=== PATIENT | female | born 1945 | race Caucasian/White ===

== ENCOUNTER 2017-05-20 11:47 | Outpatient (CLI) | payer MEDICARE ==
[2017-05-20 13:13] LABS: #Basophils 0.1 thou/uL (0.0-0.2); #Eosinphils 0.4 thou/uL (0.0-0.7); #Lymphocytes 3.5 thou/uL (1.20-3.40); #Monocytes 0.8 thou/uL (0.11-0.59); #Neutrophils 6.6 thou/uL (1.40-6.50); %Basophils 0.8 % (0.0-1.0); %Eosinophils 3.6 % (0.0-10.0); %Lymphocytes 30.6 % (21.0-51.0); %Monocytes 7.1 % (0.0-10.0); Hemoglobin 14.2 g/dL (12.0-16.0); Mean Corpuscular HGB CONC 32.1 g/dL (32.0-36.0); Mean Corpuscular Hemoglobin 30.5 pg (27.0-31.0); Mean Platelet Volume 7.7 fL (7.4-10.4); Platelet Count 299 thou/uL (130-400); RBC Distribution Width 12.3 % (11.5-14.5); Red Blood Cell (RBC) Count 4.67 mill/uL (4.20-5.40); White Blood Cell (WBC) Count 11.3 thou/uL (4.8-10.8)
[2017-05-20 13:18] LABS: Prothrombin Time 13.5 SEC (12.0-14.7)
[2017-05-20 13:19] LABS: Bilirubin Negative (Negative); Blood, Urine Negative (Negative); Clarity CLEAR (Clear); Glucose, Urine (Dipstick) Negative (Negative); Leukocyte Negative (Negative); Nitrite Negative (Negative); Protein, Urine (Dipstick) Negative (Neg-Trace); Specific Gravity, Urine 1.016 (1.002-1.036)
[2017-05-20 13:26] LABS: Bacteria/HPF None Seen HPF (None Seen); Hyaline Casts/LPF 0-3 HYALINE CAST LPF (0-3 Hyaline); Pathc Cast-AUWi Flag 0.27 (0-2.49); Squamous Epithelial 0-3 HPF (0-3); WBC/HPF 0-3 HPF (0-3)
[2017-05-20 13:47] LABS: Anion Gap 12 mmol/L (10-20); BUN (Urea Nitrogen) 26 mg/dL (9.8-20.1); Calc. Creatinine Clearance 0 mL/min (70-130); Carbon Dioxide 27 mmol/L (23-31); Chloride 104 mmol/L (98-107); Estimated GFR-MDRD 37; Glucose 117 mg/dL (83-110); Potassium 4.2 mmol/L (3.5-5.1); Sodium 139 mmol/L (136-145)
--- NOTE | 2017-05-21 07:33 | EKG ---
Test Reason : Blood Pressure : / mmHG Vent. Rate : 084 BPM Atrial Rate : 084 BPM P-R Int : 204 ms QRS Dur : 070 ms QT Int : 372 ms P-R-T Axes : 069 088 057 degrees QTc Int : 439 ms Normal sinus rhythm 1st degree AV block Low voltage QRS Cannot rule out Anterior infarct (cited on or before 20-MAY-2017) Abnormal ECG When compared with ECG of 04-SEP-2015 10:54, No significant change was found Confirmed by DR. Naomi ANDERSON ([id number]) on 05/21/2017 7:32:35 AM Referred By: MARCIN Confirmed By:DR. Naomi ANDERSON
== END 2017-05-20 11:48 | disposition home or self-care (01) ==
LOC: LABBT 11:47
PROVIDERS: ATTEND Orthopaedic Surgery
DX: Z01.818 Encounter for other preprocedural examination (principal); M17.11 Unilateral primary osteoarthritis, right knee
CPT/HCPCS: 80048; 81001; 85025; 85610; 87081; 93005; 93010

== ENCOUNTER 2017-06-02 05:24 | Day surgery (SDC) | payer MEDICARE ==
[2017-06-02] MEDS ORDERED: Bupivacaine 0.5% 10 ML VIAL ONE ×2 (06:16→06:17)
[2017-06-02] MEDS ORDERED: Midazolam HCl 2 mg/2 ml Vial ONE (06:17)
[2017-06-02] MEDS ORDERED: Fentanyl 250 MCG/5 ML VIAL ONE ×2 (06:17→09:51)
[2017-06-02] MEDS ORDERED: Lidocaine 1% (PF) 30 ML VIAL ONE (06:18)
[2017-06-02] MEDS ORDERED: Ropivacaine 0.2% HCl/PF 20 ML ONE (06:18)
[2017-06-02] MEDS ORDERED: Vancomycin HCl 1.5 GM in Sodium Chloride 0.9% 250 ML 300 ML IVPB SCH ×2 (06:30→20:00)
[2017-06-02] MEDS ORDERED: CEFAZOLIN/Water 2 GM/20 ML SYRINGE ONE (06:32)
[2017-06-02] MEDS ORDERED: Zolpidem Tartrate 5 MG TAB PO PRN ×2 (07:13→07:30)
[2017-06-02] MEDS ORDERED: Ropivacaine HCl/PF 250 ML in Premix Bag 1 BAG NERVE BLCK SCH (07:13)
[2017-06-02] MEDS ORDERED: HYDROcodone/Acetaminophen 5/325 mg Tablet PO PRN (07:13)
[2017-06-02] MEDS ORDERED: Ondansetron HCl/PF 4 MG/2 ML Vial IVP PRN ×2 (07:13→07:44)
[2017-06-02] MEDS ORDERED: Promethazine HCl 25 MG/ML VIAL IM PRN ×2 (07:13→07:44)
[2017-06-02] MEDS ORDERED: traMADol HCl 50 MG TAB PO PRN ×3 (07:13→07:30)
[2017-06-02] MEDS ORDERED: HYDROcodone/Acetaminophen 10/325 mg Tablet PO PRN ×2 (07:30)
[2017-06-02] MEDS ORDERED: diphenhydrAMINE 25 MG CAP PO PRN (07:30)
[2017-06-02] MEDS ORDERED: Acetaminophen 325 MG TAB PO PRN (07:30)
[2017-06-02] MEDS ORDERED: Tranexamic Acid 1,000 MG in Sodium Chloride 0.9% 100 ML IVPB SCH (07:30)
[2017-06-02] MEDS ORDERED: Albuterol Sulfate 2.5 mg/3 ml Neb NEB PRN (07:31)
[2017-06-02] MEDS ORDERED: PROVENTIL INHALER 6.7 G (200 INHALATIONS) INH PRN (07:31)
[2017-06-02] MEDS ORDERED: Promethazine HCl 25 MG/ML VIAL SLOW IVP PRN (07:44)
--- NOTE | 2017-06-02 09:53 | OP ---
DATE OF PROCEDURE: 06/02/2017 PREOPERATIVE DIAGNOSIS: Right knee osteoarthrosis. POSTOPERATIVE DIAGNOSIS: Right knee osteoarthrosis. PROCEDURE PERFORMED: Right total knee replacement using [employer] pinless navigation. SURGEON: Loc Bautista M.D. PHYSICIAN PRACTICE COORDINATOR: Marcie Barnes PA-C COMPLICATIONS: None. ANESTHESIA: She had general anesthetic, she also had preoperative blocks. DISPOSITION: She did go to recovery room in stable condition. BLOOD LOSS: Minimal. IMPLANTS: To the right knee is Triathlon total knee system, femur was size 4 cruciate retaining femu r, we used a size 4 universal tibial baseplate. We used a 4 x 13 CS X3 tibial bearing and an asymmet adrienne 29 x 9 X3 patella. CONDITION: She did go to recovery room in stable condition. INDICATIONS: Ms. Schneider is a 71-year-old female who has tried and failed nonoperative treatment fo r right knee pain and feeling of instability secondary to osteoarthritis. At this time, she opted to have her knee replaced. PROCEDURE IN DETAIL: After all appropriate consent forms were explained and signed, the patient was t aken back to the Operating Room and at this time was given general anesthetic. Once the level of anes thesia was appropriate, a well-padded tourniquet was placed on the right leg and the leg was then pre pped and draped in standard surgical fashion. The limb was exsanguinated and tourniquet taken up to 3 00 mmHg. Midline incision was made with a 10 blade down through the skin and subcutaneous tissue. Bov ie electrocautery was used to coagulate any brisk venous bleeding. A new blade was used to make a med ial parapatellar arthrotomy. Small subperiosteal release was performed medially and excess fat pad wa s removed. The knee was flexed up to gain access to the femur. The femur was navigated and distal fem oral resection was made. Epicondylar access was used to align our sizing jig and this was pinned in p renetta. We sized our femur to be a size 4 cruciate retaining 4:1 cutting block was applied and pinned. Anterior and posterior chamfer cuts were then made. We navigated out our proximal tibia and made our proximal tibial resection. Spreaders were used to remove any posterior osteophytes off the back of th e femur as well as remaining meniscal tissue. A long alignment dequan was then used to achieve correct r otation of our tibial baseplate and a size 4 was chosen. This was pinned in place. We trialed the kenroy yethylene and a 4 x 13 CS X3 polyethylene gave us full extension and good stability throughout range of motion. Two towel clips and a saw were used to cut our patella. Three lug nuts were drilled and 29 x 9 X3 patella was trialed which sat nicely in the trochlear groove. We then drilled our femur and p unched our tibia. All components were removed. The knee was thoroughly irrigated and dried. Cement wa s mixed into the cement gun on the back table. Components were then placed. The knee was held out in full extension until the cement had dried. All excess bone cement was removed. Multiple #[address] itches as well as a Quill was used to close our extensor mechanism. 0 Quill followed by a running Mon oderm was then used to close the skin. Surgicel glue was then used on the skin. Once this had dried, soft tissue dressing was applied to the limb, tourniquet was let down, and the toes pinked up nicely. The patient was then awakened and taken to the Recovery Room in stable condition. All counts were c orrect at the end of the case. The patient did receive preoperative IV antibiotics. The patient was injected with Exparel for postoperative pain relief.
[2017-06-02] MEDS ORDERED: Promethazine HCl 25 MG/ML VIAL ONE (10:02)
[2017-06-02] MEDS: CeleCOXIB 100 MG CAP PO SCH (11:27)
[2017-06-02] MEDS: Amlodipine 5 MG TAB PO SCH (11:27)
[2017-06-02] MEDS: Triamterene/Hydrochlorothiazide 37.5 mg/25 mg Tablet PO SCH (11:27)
[2017-06-02] MEDS: Aspirin 81 mg Enteric Coated Tablet PO SCH ×2 (11:28→20:26)
[2017-06-02 11:30] VITALS: BMI 35.5
[2017-06-02] MEDS ORDERED: Milk Of Magnesia 30 ML UDCUP PO PRN (12:39)
[2017-06-02] MEDS ORDERED: Chloraseptic Spray 180 ml Bottle PO PRN (12:39)
[2017-06-02] MEDS ORDERED: Eucerin (Mineral Oil/Petrolatum,White) 30 gm Jar TOP PRN (12:39)
[2017-06-02] MEDS ORDERED: Mag-Al 1200 mg/1200 mg/30 ML UDCUP PO PRN (12:39)
[2017-06-02] MEDS ORDERED: Senokot 8.6 MG TAB PO PRN (12:39)
[2017-06-02] MEDS ORDERED: Ondansetron ODT 4 MG TAB PO PRN (12:39)
[2017-06-02] MEDS ORDERED: Diabetic Tussin 200 MG/10 ML UDCUP PO PRN (12:39)
[2017-06-02] MEDS ORDERED: Loperamide HCl 2 MG CAP PO PRN (12:39)
[2017-06-02] MEDS ORDERED: Loratadine 10 MG TAB PO PRN (12:39)
[2017-06-02] MEDS ORDERED: hydrALAZINE 20 MG/ML VIAL SLOW IVP PRN (12:39)
[2017-06-02] MEDS ORDERED: Artificial Tears 18 DROP/0.9 ML EA EYE PRN (12:39)
--- NOTE | 2017-06-02 12:42 | PDOC.PN ---
- Subjective Encounter Start Date: 06/02/17 Encounter Start Time: 12:40 -: old records requested/rev consult for medical management Patient seen and examined. No new complaints. currently feels sleepy after surgery as she did not sleep last night well pain is controlled - Objective Resuscitation Status: Resuscitation Status FULL:Full Resuscitation MAR Reviewed: Yes Vital Signs & Weight: Vital Signs (12 hours) Temp Pulse Resp BP Pulse Ox 06/02/17 11:05 98.2 F 95 18 139/64 96 Weight Weight 220 lb Phys Exam - Physical Examination Constitutional: NAD HEENT: PERRLA, moist MMs, sclera anicteric Neck: no JVD, supple Respiratory: no wheezing, no rales, no rhonchi Cardiovascular: RRR, no significant murmur, no rub Gastrointestinal: soft, non-tender, no distention, positive bowel sounds Musculoskeletal: no edema, pulses present right knee with dressing Neurological: non-focal, normal sensation, moves all 4 limbs Psychiatric: normal affect, A&O x 3 Skin: no rash, normal turgor Dx/Plan (1) Status post right knee replacement Code(s): Z96.651 - PRESENCE OF RIGHT ARTIFICIAL KNEE JOINT Status: Acute (2) Hypertension Code(s): I10 - ESSENTIAL (PRIMARY) HYPERTENSION Status: Chronic (3) GERD (gastroesophageal reflux disease) Code(s): K21.9 - GASTRO-ESOPHAGEAL REFLUX DISEASE WITHOUT ESOPHAGITIS Status: Chronic Qualifiers: Esophagitis presence: without esophagitis Qualified Code(s): K21.9 - Gastro -esophageal reflux disease without esophagitis (4) Asthma Code(s): J45.909 - UNSPECIFIED ASTHMA, UNCOMPLICATED Status: Chronic Qualifiers: Asthma severity: unspecified severity (5) Obesity (BMI 30-39.9) Code(s): E66.9 - OBESITY, UNSPECIFIED Status: Chronic (6) Osteoarthritis Code(s): M19.90 - UNSPECIFIED OSTEOARTHRITIS, UNSPECIFIED SITE Status: Chronic - Plan cont current plan of care, PT/OT, DVT proph w/SCDs * medication reviewed as below * symptomatic treatment * code status- Full code * GI prophylasix: pepcid 20 mg po bid * DVT prophylaxis: aspirin as per protocol * PT/OT as per [facility] protocol * pain control with pain med * restart home meds * nerve block. Review of Systems - Review of Systems Constitutional: negative: fever, chills, sweats, weakness, malaise, other Eyes: negative: Pain, Vision Change, Conjunctivae Inflammation, Eyelid Inflammation, Redness, Other ENT: negative: Ear Pain, Ear Discharge, Nose Pain, Nose Discharge, Nose Congestion, Mouth Pain, Mouth Swelling, Throat Pain, Throat Swelling, Other Respiratory: negative: Cough, Dry, Shortness of Breath, Hemoptysis, SOB with Excertion, Pleuritic Pain, Sputum, Wheezing Cardiovascular: negative: chest pain, palpitations, orthopnea, paroxysmal nocturnal dyspnea, edema, light headedness, other Gastrointestinal: negative: Nausea, Vomiting, Abdominal Pain, Diarrhea, Constipation, Melena, Hematochezia, Other Genitourinary: negative: Dysuria, Frequency, Incontinence, Hematuria, Retention , Other Musculoskeletal: negative: Neck Pain, Shoulder Pain, Arm Pain, Back Pain, Hand Pain, Leg Pain, Foot Pain, Other Skin: negative: Rash, Lesions, Pj, Bruising, Other Neurological: negative: Weakness, Numbness, Incoordination, Change in Speech, Confusion, Seizures, Other - Medications/Allergies Allergies/Adverse Reactions: Allergies Allergy/AdvReac Type Severity Reaction Status Date / Time adhesive Allergy rash, Verified 05/20/17 12:12 blistering latex Allergy Rash Verified 05/20/17 12:12 horse serum Allergy Rash Uncoded 05/20/17 12:12 Medications: Current Medications Acetaminophen (Tylenol) 650 mg PO Q4H PRN PRN Reason: KHAN/ T > 101F; Mild Pain (1-3) Hydrocodone Bitart/Acetaminophen ([place] 5/325) 1 tab PO Q4H PRN PRN Reason: Mild Pain (1-3) Hydrocodone Bitart/Acetaminophen ([place] 5/325) 2 tab PO Q4H PRN PRN Reason: For Moderate Pain 4-6 Al Hydroxide/Mg Hydroxide (Maalox) 15 ml PO Q4H PRN PRN Reason: Heartburn or Indigestion Albuterol Sulfate (Ventolin) 7.5 mg NEB Q8H PRN PRN Reason: COPD Amlodipine Besylate (Norvasc) 5 mg PO DAILY J[facility] Last Admin: 06/02/17 11:27 Dose: Not Given Artificial Tears (Tears Naturale) 0 drop EA EYE PRN PRN PRN Reason: Dry Eyes Aspirin (Ecotrin) 81 mg PO BID [facility] Last Admin: 06/02/17 11:28 Dose: Not Given Atorvastatin Calcium (Lipitor) 40 mg PO HS [facility] Benazepril HCl (Lotensin) 20 mg PO DAILY [facility] Last Admin: 06/02/17 11:27 Dose: Not Given Budesonide (Pulmicort Neb Solution) 0.5 mg NEB BID-RT [facility] Cefazolin Sodium (Ancef) 2 gm SLOW IVP 0700,1500,2300 [facility] Stop: 06/02/17 23:01 Celecoxib (Celebrex) 200 mg PO DAILY [facility] Last Admin: 06/02/17 11:27 Dose: Not Given Diphenhydramine HCl (Benadryl) 25 mg PO Q6H PRN PRN Reason: Itching Famotidine (Pepcid) 20 mg PO BID [facility] Fentanyl (Sublimaze) 50 mcg IV Q1H PRN PRN Reason: Moderate to Severe Pain (6-10) Ferrous Gluconate (Fergon) 324 mg PO BID-[facility] Guaifenesin (Robitussin Sf) 200 mg PO Q4H PRN PRN Reason: Cough Hydralazine HCl (Apresoline) 10 mg SLOW IVP Q4H PRN PRN Reason: Systolic BP > 180 Ropivacaine 250 ml/ Device 250 mls @ 6 mls/hr NERVE BLCK INF [facility] PRN Reason: As Directed Sodium Chloride (Normal Saline 0.9%) 1,000 mls @ 100 mls/hr IV .Q10H [facility] Vancomycin HCl 1.5 gm/ Sodium (Chloride) 300 mls @ 200 mls/hr IVPB 2000 [facility] Stop: 06/02/17 21:29 Ipratropium [place] (Atrovent) 0.2 ml NEB TID-RT [facility] Iron/Minerals/Multivitamins (Theragran M) 1 tab PO DAILY [facility] Loperamide HCl (Imodium) 2 mg PO PRN PRN PRN Reason: Diarrhea/Loose Stools Loratadine (Claritin) 10 mg PO DAILYPRN PRN PRN Reason: Sinus Symptoms Magnesium Hydroxide (Milk Of Magnesium) 30 ml PO DAILYPRN PRN PRN Reason: Constipation Mineral Oil/White Petrolatum (Eucerin Cream) 0 gm TOP BIDPRN PRN PRN Reason: Dry Skin Montelukast Sodium (Singulair) 10 mg PO HS [facility] Ondansetron HCl (Zofran) 4 mg IVP Q6H PRN PRN Reason: Nausea/Vomiting Ondansetron HCl (Zofran Odt) 4 mg PO Q6H PRN PRN Reason: Nausea/Vomiting Phenol (Chloraseptic [place] 180 Ml Bot) 0 ml PO PRN PRN PRN Reason: Sore Throat Promethazine HCl (Phenergan) 12.5 mg IM Q4H PRN PRN Reason: Nausea/Vomiting Senna (Senokot) 2 tab PO HSPRN PRN PRN Reason: Constipation Senna/Docusate Sodium (Senokot S) 2 tab PO BID J[facility] Sodium Chloride (Flush - Normal Saline) 10 ml IVF PRN PRN PRN Reason: Saline Flush Tramadol HCl (Ultram) 50 mg PO Q6H PRN PRN Reason: Mild Pain (1-3) Tramadol HCl (Ultram) 100 mg PO Q6H PRN PRN Reason: Moderate Pain 4-6 Triamterene/HCTZ (Maxzide-25) 1 tab PO QAM [facility] Last Admin: 06/02/17 11:27 Dose: Not Given Zolpidem Tartrate (Ambien) 5 mg PO HSPRN PRN PRN Reason: Insomnia History of Present Illnes - History of Present Illness Reason for Visit: admitted for right knee replacement History of Present Illness: consulted for medical management pt has knee OA, she failed outpt conservative treatment she required knee replacement post op pt is sleepy pain controlled no chest pain, dyspnea no fever, UTI symptoms - Past Medical History Cardiac: HTN, Hyperlipidemia Pulmonary: Asthma Gastrointestinal: GERD Musculoskeletal: Osteoarthritis - Past Surgical History Past Surgical History: Other (back surgery, bilateral CTR), Total Knee Replacement, Tubal Ligation - Past Family History Family History: None - Past Social History Smoke: No Alcohol: None Drugs: None Domestic Violence: Negative
[2017-06-02] MEDS: Fentanyl 100 MCG/2 ML VIAL IV PRN ×2 (12:47→17:15)
[2017-06-02] MEDS: Sodium Chloride 0.9% 1,000 ML IV SCH ×2 (12:48→17:57)
[2017-06-02] MEDS: Ipratropium Bromide 2.5 ml Neb NEB SCH ×2 (12:54→19:17)
[2017-06-02] MEDS: CEFAZOLIN/Water 2 GM/20 ML SYRINGE SLOW IVP SCH ×2 (16:01→22:24)
[2017-06-02] MEDS: Ondansetron HCl/PF 4 MG/2 ML Vial IVP PRN ×2 (16:01→22:22)
[2017-06-02] MEDS: Promethazine HCl 25 MG/ML VIAL IM PRN (17:15)
[2017-06-02] MEDS: Budesonide 0.5 MG/2 ML NEB NEB SCH (19:22)
[2017-06-02] MEDS: Famotidine 20 MG TAB PO SCH (20:26)
[2017-06-02] MEDS: HYDROcodone/Acetaminophen 5/325 mg Tablet PO PRN (20:27)
[2017-06-02] MEDS ORDERED: Atorvastatin Calcium 40 MG TAB PO SCH (21:00)
[2017-06-02] MEDS ORDERED: Montelukast Sodium 10 mg Tablet PO SCH (21:00)
[2017-06-03 02:36] VITALS: TEMP 98.4
[2017-06-03] MEDS: Sodium Chloride 0.9% 1,000 ML IV SCH ×2 (02:47→13:41)
[2017-06-03 04:21] LABS: Hemoglobin 12.3 g/dL (12.0-16.0); Mean Corpuscular HGB CONC 33.1 g/dL (32.0-36.0); Mean Corpuscular Hemoglobin 30.8 pg (27.0-31.0); Platelet Count 240 thou/uL (130-400); RBC Distribution Width 12.1 % (11.5-14.5); Red Blood Cell (RBC) Count 3.98 mill/uL (4.20-5.40); White Blood Cell (WBC) Count 13.8 thou/uL (4.8-10.8)
[2017-06-03] MEDS: HYDROcodone/Acetaminophen 5/325 mg Tablet PO PRN (05:18)
[2017-06-03] MEDS: Ipratropium Bromide 2.5 ml Neb NEB SCH ×2 (07:32→11:57)
[2017-06-03] MEDS: Budesonide 0.5 MG/2 ML NEB NEB SCH (07:32)
[2017-06-03] MEDS: Promethazine HCl 25 MG/ML VIAL IM PRN (07:48)
[2017-06-03] MEDS: Triamterene/Hydrochlorothiazide 37.5 mg/25 mg Tablet PO SCH (07:51)
[2017-06-03] MEDS: CeleCOXIB 100 MG CAP PO SCH (07:52)
[2017-06-03 07:53] VITALS: BP 124/68
[2017-06-03] MEDS: Aspirin 81 mg Enteric Coated Tablet PO SCH (07:53)
[2017-06-03] MEDS: Famotidine 20 MG TAB PO SCH (07:53)
[2017-06-03] MEDS ORDERED: Ferrous Gluconate 324 MG TAB PO SCH (08:00)
--- NOTE | 2017-06-03 08:02 | PRG ---
DATE OF SERVICE: 06/03/2017 SUBJECTIVE: Michelle is a 71-year-old white female postop day #1 right total knee arthroplasty. She is doing relatively well. She is normotensive according to nursing assessment but does take I belie ve 3 different antihypertensives. PHYSICAL EXAMINATION: VITAL SIGNS: Blood pressure 126/70s. GENERAL: She is alert and oriented to person, place, time, and situation, and responsive. Neurovasc ularly intact in the right lower extremity. No strikethrough is noted. Dressing is clean and dry. ASSESSMENT: A 71-year-old white female postop day #1 right total knee arthroplasty. PLAN: We will just hold her Norvasc, give her other agents. Continue to monitor and probable discha rge tomorrow.
[2017-06-03] MEDS ORDERED: Senokot S 8.6-50 MG TAB PO SCH (09:00)
[2017-06-03] MEDS ORDERED: Multivitamin W/ Minerals 1 TAB PO SCH (09:00)
[2017-06-03] MEDS ORDERED: HYDROcodone/Acetaminophen 10/325 mg Tablet PO PRN (09:09)
[2017-06-03] MEDS: HYDROcodone/Acetaminophen 10/325 mg Tablet PO PRN ×2 (09:14→13:40)
--- NOTE | 2017-06-03 09:22 | PDOC.PN ---
- Subjective Encounter Start Date: 06/03/17 Encounter Start Time: 08:45 -: old records requested/rev Patient seen and examined. No new complaints. No overnight events - Objective Resuscitation Status: Resuscitation Status FULL:Full Resuscitation MAR Reviewed: Yes Vital Signs & Weight: Vital Signs (12 hours) Temp Pulse Resp BP BP Pulse Ox 06/03/17 07:52 124/68 06/03/17 07:50 98.4 F 87 18 124/68 94 L 06/03/17 04:00 98.4 F 87 18 131/75 94 L 06/03/17 00:00 98.4 F 92 18 131/72 94 L Weight Weight 220 lb I&O: 06/02/17 06/03/17 06/04/17 06:59 06:59 06:59 Intake Total 3762 72 Output Total 2250 Balance 1512 72 Result Diagrams: 06/03/17 04:02 Phys Exam - Physical Examination Constitutional: NAD HEENT: PERRLA, moist MMs, sclera anicteric Neck: no JVD, supple Respiratory: no wheezing, no rales, no rhonchi Cardiovascular: RRR, no significant murmur, no rub Gastrointestinal: soft, non-tender, no distention, positive bowel sounds Musculoskeletal: no edema, pulses present right kneww with brace Neurological: non-focal, normal sensation, moves all 4 limbs Psychiatric: normal affect, A&O x 3 Skin: no rash, normal turgor Dx/Plan (1) Status post right knee replacement Code(s): Z96.651 - PRESENCE OF RIGHT ARTIFICIAL KNEE JOINT Status: Acute (2) Hypertension Code(s): I10 - ESSENTIAL (PRIMARY) HYPERTENSION Status: Chronic (3) GERD (gastroesophageal reflux disease) Code(s): K21.9 - GASTRO-ESOPHAGEAL REFLUX DISEASE WITHOUT ESOPHAGITIS Status: Chronic Qualifiers: Esophagitis presence: without esophagitis Qualified Code(s): K21.9 - Gastro -esophageal reflux disease without esophagitis (4) Asthma Code(s): J45.909 - UNSPECIFIED ASTHMA, UNCOMPLICATED Status: Chronic Qualifiers: Asthma severity: unspecified severity (5) Obesity (BMI 30-39.9) Code(s): E66.9 - OBESITY, UNSPECIFIED Status: Chronic (6) Osteoarthritis Code(s): M19.90 - UNSPECIFIED OSTEOARTHRITIS, UNSPECIFIED SITE Status: Chronic - Plan cont current plan of care, plan discussed w/ family, PT/OT, DVT proph w/SCDs * medication reviewed as below * symptomatic treatment * code status- Full code * GI prophylasix: pepcid 20 mg po bid * DVT prophylaxis: aspirin as per protocol * PT/OT as per [facility] protocol * pain control with pain med * continue home meds * nerve block.. Review of Systems - Review of Systems Eyes: negative: Pain, Vision Change, Conjunctivae Inflammation, Eyelid Inflammation, Redness, Other ENT: negative: Ear Pain, Ear Discharge, Nose Pain, Nose Discharge, Nose Congestion, Mouth Pain, Mouth Swelling, Throat Pain, Throat Swelling, Other Respiratory: negative: Cough, Dry, Shortness of Breath, Hemoptysis, SOB with Excertion, Pleuritic Pain, Sputum, Wheezing Cardiovascular: negative: chest pain, palpitations, orthopnea, paroxysmal nocturnal dyspnea, edema, light headedness, other Gastrointestinal: negative: Nausea, Vomiting, Abdominal Pain, Diarrhea, Constipation, Melena, Hematochezia, Other Genitourinary: negative: Dysuria, Frequency, Incontinence, Hematuria, Retention , Other Musculoskeletal: negative: Neck Pain, Shoulder Pain, Arm Pain, Back Pain, Hand Pain, Leg Pain, Foot Pain, Other - Medications/Allergies Allergies/Adverse Reactions: Allergies Allergy/AdvReac Type Severity Reaction Status Date / Time adhesive Allergy rash, Verified 06/02/17 13:03 blistering latex Allergy Rash Verified 06/02/17 13:03 horse serum Allergy Rash Uncoded 05/20/17 12:12 Medications: Current Medications Acetaminophen (Tylenol) 650 mg PO Q4H PRN PRN Reason: KHAN/ T > 101F; Mild Pain (1-3) Hydrocodone Bitart/Acetaminophen ([place] 10/325) 1 tab PO Q4H PRN PRN Reason: PAIN SCALE 2-4 Hydrocodone Bitart/Acetaminophen ([place] 10/325) 2 tab PO Q4H PRN PRN Reason: PAIN SCALE 5-10 Last Admin: 06/03/17 09:14 Dose: 2 tab Al Hydroxide/Mg Hydroxide (Maalox) 15 ml PO Q4H PRN PRN Reason: Heartburn or Indigestion Albuterol Sulfate (Ventolin) 7.5 mg NEB Q8H PRN PRN Reason: COPD Last Admin: 06/02/17 19:21 Dose: 7.5 mg Amlodipine Besylate (Norvasc) 5 mg PO DAILY [facility] Last Admin: 06/02/17 11:27 Dose: Not Given Artificial Tears (Tears Naturale) 0 drop EA EYE PRN PRN PRN Reason: Dry Eyes Aspirin (Ecotrin) 81 mg PO BID [facility] Last Admin: 06/03/17 07:53 Dose: 81 mg Atorvastatin Calcium (Lipitor) 40 mg PO HS [facility] Last Admin: 06/02/17 20:26 Dose: 40 mg Benazepril HCl (Lotensin) 20 mg PO DAILY [facility] Last Admin: 06/03/17 07:52 Dose: 20 mg Budesonide (Pulmicort Neb Solution) 0.5 mg NEB BID-RT [facility] Last Admin: 06/03/17 07:32 Dose: 0.5 mg Celecoxib (Celebrex) 200 mg PO DAILY [facility] Last Admin: 06/03/17 07:52 Dose: 200 mg Diphenhydramine HCl (Benadryl) 25 mg PO Q6H PRN PRN Reason: Itching Famotidine (Pepcid) 20 mg PO BID [facility] Last Admin: 06/03/17 07:53 Dose: 20 mg Fentanyl (Sublimaze) 50 mcg IV Q1H PRN PRN Reason: Moderate to Severe Pain (6-10) Last Admin: 06/02/17 17:15 Dose: 50 mcg Ferrous Gluconate (Fergon) 324 mg PO BID-WM [facility] Last Admin: 06/03/17 07:53 Dose: 324 mg Guaifenesin (Robitussin Sf) 200 mg PO Q4H PRN PRN Reason: Cough Hydralazine HCl (Apresoline) 10 mg SLOW IVP Q4H PRN PRN Reason: Systolic BP > 180 Ropivacaine 250 ml/ Device 250 mls @ 6 mls/hr NERVE BLCK INF [facility] PRN Reason: As Directed Sodium Chloride (Normal Saline 0.9%) 1,000 mls @ 100 mls/hr IV .Q10H [facility] Last Admin: 06/03/17 02:47 Dose: Not Given Ipratropium [place] (Atrovent) 0.2 ml NEB TID-RT [facility] Last Admin: 06/03/17 07:32 Dose: 0.2 ml Iron/Minerals/Multivitamins (Theragran M) 1 tab PO DAILY [facility] Last Admin: 06/03/17 07:53 Dose: 1 tab Loperamide HCl (Imodium) 2 mg PO PRN PRN PRN Reason: Diarrhea/Loose Stools Loratadine (Claritin) 10 mg PO DAILYPRN PRN PRN Reason: Sinus Symptoms Magnesium Hydroxide (Milk Of Magnesium) 30 ml PO DAILYPRN PRN PRN Reason: Constipation Mineral Oil/White Petrolatum (Eucerin Cream) 0 gm TOP BIDPRN PRN PRN Reason: Dry Skin Montelukast Sodium (Singulair) 10 mg PO [facility] Last Admin: 06/02/17 20:26 Dose: 10 mg Ondansetron HCl (Zofran) 4 mg IVP Q6H PRN PRN Reason: Nausea/Vomiting Last Admin: 06/02/17 22:22 Dose: 4 mg Ondansetron HCl (Zofran Odt) 4 mg PO Q6H PRN PRN Reason: Nausea/Vomiting Phenol (Chloraseptic [place] 180 Ml Bot) 0 ml PO PRN PRN PRN Reason: Sore Throat Promethazine HCl (Phenergan) 12.5 mg IM Q4H PRN PRN Reason: Nausea/Vomiting Last Admin: 06/03/17 07:48 Dose: 12.5 mg Senna (Senokot) 2 tab PO HSPRN PRN PRN Reason: Constipation Senna/Docusate Sodium (Senokot S) 2 tab PO BID [facility] Last Admin: 06/03/17 07:52 Dose: 2 tab Sodium Chloride (Flush - Normal Saline) 10 ml IVF PRN PRN PRN Reason: Saline Flush Tramadol HCl (Ultram) 50 mg PO Q6H PRN PRN Reason: Mild Pain (1-3) Tramadol HCl (Ultram) 100 mg PO Q6H PRN PRN Reason: Moderate Pain 4-6 Last Admin: 06/02/17 16:01 Dose: 100 mg Triamterene/HCTZ (Maxzide-25) 1 tab PO QAM [facility] Last Admin: 06/03/17 07:51 Dose: 1 tab Zolpidem Tartrate (Ambien) 5 mg PO HSPRN PRN PRN Reason: Insomnia
[2017-06-03] MEDS: Amlodipine 5 MG TAB PO SCH (11:17)
[2017-06-03] MEDS ORDERED: Ipratropium Bromide 2.5 ml Neb NEB SCH (12:30)
[2017-06-03] MEDS ORDERED: Ropivacaine 0.2% 550 ML 550 ML NERVE BLCK SCH (15:11)
== END 2017-06-03 16:00 | disposition home or self-care (01) ==
LOC: SDC 05:24 → SJJU 07:30 → SDC 06-03 16:00
PROVIDERS: ATTEND Orthopaedic Surgery
PROC: 0SRC0J9 Replacement of Right Knee Joint with Synthetic Substitute, Cemented, Open Approach (ICD-10-PCS; principal; 2017-06-02)
DX: M17.11 Unilateral primary osteoarthritis, right knee (principal); I10 Essential (primary) hypertension; K21.9 Gastro-esophageal reflux disease without esophagitis; J44.9 Chronic obstructive pulmonary disease, unspecified; E66.9 Obesity, unspecified; Z68.35 Body mass index [BMI] 35.0-35.9, adult; Z79.82 Long term (current) use of aspirin; Z79.51 Long term (current) use of inhaled steroids; Z79.899 Other long term (current) drug therapy; Z88.7 Allergy status to serum and vaccine; Z91.040 Latex allergy status; Z91.048 Other nonmedicinal substance allergy status; Z98.890 Other specified postprocedural states
CPT/HCPCS: 27447; 85027; 86850; 86900; 86901; 94640 ×3; 96374; 97110 ×2; 97116 ×2; 97530; A4306; C1713; C1776; G8978; G8979; 36415; J2001; J2250; J2405; J2550; J2795; J3010; J3370; J3490; J7050; J7611; J7626; J7644

== ENCOUNTER 2022-11-29 09:50 | Outpatient (CLI) | payer MEDICARE ==
[2022-11-29 11:42] LABS: Bilirubin Neg (Negative); Blood, Urine Negative (Negative); Clarity Clear (Clear); Glucose, Urine (Dipstick) Normal (Negative); Ketone, Urine Negative (Negative); Leukocyte Negative (Negative); Nitrite Negative (Negative); Protein, Urine (Dipstick) 30 mg/dl (Neg-Trace); Specific Gravity, Urine 1.025 (1.005-1.030); Urobilinogen Normal mg/dL (Less than 2)
== END 2022-11-29 09:51 | disposition home or self-care (01) ==
LOC: LABBT 09:50
PROVIDERS: ATTEND Orthopaedic Surgery
DX: Z01.818 Encounter for other preprocedural examination (principal); M17.12 Unilateral primary osteoarthritis, left knee
CPT/HCPCS: 71046; 81003; 87081; 93005; 93010

== ENCOUNTER 2022-12-04 05:30 | Observation (INO) | payer MEDICARE ==
[2022-11-29 10:51] VITALS: BMI 34.8
[2022-11-29 12:01] LABS: #Basophils 0.1 10x3/uL (0.0-0.2); #Eosinphils 0.3 10x3/uL (0.0-0.5); #Monocytes 0.8 10x3/uL (0.0-1.1); %Basophils 0.8 % (0.0-2.0); %Eosinophils 2.1 % (0.0-6.0); %Lymphocytes 28.2 % (18.0-47.0); %Monocytes 6.3 % (0.0-10.0); %Neutrophils 62.3 % (40.0-75.0); Hematocrit 44.9 % (34.9-44.5); Hemoglobin 14.3 g/dL (12.0-15.5); Mean Corpuscular HGB CONC 31.8 g/dL (32.0-36.0); Mean Corpuscular Hemoglobin 30.5 pg (27.0-33.0); Mean Corpuscular Volume 95.7 fl (81.6-98.3); Mean Platelet Volume 10.5 fl (7.4-10.4); Platelet Count 289 10x3/uL (150-450); RBC Distribution Width 13.7 % (11.5-14.5); Red Blood Cell (RBC) Count 4.69 10x6/uL (3.90-5.03); White Blood Cell (WBC) Count 12.8 10x3/uL (3.5-10.5)
[2022-11-29 12:28] LABS: Prothrombin Time 10.7 sec (9.5-12.1)
[2022-11-29 12:50] LABS: Anion Gap 16 mmol/L (10-20); BUN (Urea Nitrogen) 17 mg/dL (9.8-20.1); Calc. Creatinine Clearance 0 mL/min (70-130); Calcium 9.6 mg/dL (7.8-10.44); Carbon Dioxide 24 mmol/L (23-31); Chloride 106 mmol/L (98-107); Estimated GFR 67; Glucose 114 mg/dL (83-110); Potassium 3.8 mmol/L (3.5-5.1); Sodium 142 mmol/L (136-145)
[2022-12-04] MEDS ORDERED: Sodium Chloride 0.9% 100 ML ONE ×2 (06:09→07:18)
[2022-12-04] MEDS ORDERED: Tranexamic Acid 1,000 MG/10 ML VIAL ONE (06:09)
[2022-12-04] MEDS ORDERED: Vancomycin (BATCH) 1.5 GRAM/300 ML BAG ONE (06:09)
[2022-12-04] MEDS ORDERED: Bupivacaine 0.25% HCL 30 ML VIAL ONE (06:43)
[2022-12-04] MEDS ORDERED: Lidocaine 1% (PF) 30 ML VIAL ONE (06:51)
[2022-12-04] MEDS ORDERED: Midazolam HCl 2 mg/2 ml Vial ONE (06:51)
[2022-12-04] MEDS ORDERED: fentaNYL 50 mcg/mL 1 mL Vial ONE ×8 (06:51→13:00)
[2022-12-04] MEDS ORDERED: Bupivacaine PF 0.5% 30 ML VIAL ONE (06:51)
[2022-12-04] MEDS ORDERED: CEFAZOLIN 2 GM VIAL ONE (07:18)
[2022-12-04] MEDS ORDERED: fentaNYL 50 mcg/mL 1 mL Vial SLOW IVP PRN (07:38)
[2022-12-04] MEDS ORDERED: HYDROcodone/Acetaminophen 10/325 mg Tablet PO PRN (07:45)
[2022-12-04] MEDS ORDERED: Ondansetron PF 4 MG/2 ML Vial IVP PRN ×2 (07:45→08:06)
[2022-12-04] MEDS ORDERED: traMADol HCl 50 MG TAB PO PRN ×2 (07:45)
[2022-12-04] MEDS ORDERED: Promethazine HCl 25 MG/ML VIAL IM PRN ×3 (07:45→09:49)
[2022-12-04] MEDS ORDERED: Ropivacaine 0.2% 550 ML 550 ML NERVE BLCK SCH (07:45)
[2022-12-04] MEDS ORDERED: Zolpidem Tartrate 5 MG TAB PO PRN ×2 (07:45→08:06)
[2022-12-04] MEDS ORDERED: Ondansetron PF 4 MG/2 ML Vial ONE ×2 (07:59→11:45)
[2022-12-04] MEDS ORDERED: Dexamethasone 20 MG/5 ML VIAL ONE (07:59)
[2022-12-04] MEDS ORDERED: PROPOFOL 200 MG/20 ML VIAL ONE (07:59)
[2022-12-04] MEDS ORDERED: Lidocaine 1% PF 5 ML VIAL ONE (07:59)
[2022-12-04] MEDS ORDERED: Bupivacaine HCl 0.5%/Epinephrine 1:200,000/PF 30 ml Vial ONE (07:59)
[2022-12-04] MEDS ORDERED: diphenhydrAMINE 25 MG CAP PO PRN (08:06)
[2022-12-04] MEDS ORDERED: Acetaminophen 325 MG TAB PO PRN (08:06)
[2022-12-04] MEDS ORDERED: Albuterol 200 PUFF (6.7GM INHALER) INH PRN (08:07)
[2022-12-04] MEDS ORDERED: Tranexamic Acid 1,000 MG in Sodium Chloride 0.9% 100 ML IVPB SCH (08:15)
[2022-12-04] MEDS ORDERED: EQUATE ACID REDUCER PO SCH (09:00)
[2022-12-04] MEDS ORDERED: Ipratropium/Albuterol 3 ML NEB ONE (09:38)
[2022-12-04] MEDS ORDERED: Ondansetron HCl/PF 4 MG/2 ML Vial IVP PRN (09:49)
[2022-12-04] MEDS ORDERED: Ketorolac Tromethamine 30 MG/ML VIAL ONE (12:13)
[2022-12-04] MEDS: Ketorolac Tromethamine 30 MG/ML VIAL IVP SCH ×3 (12:13→22:58)
[2022-12-04] MEDS: Sodium Chloride 0.9% 1,000 ML IV SCH ×2 (15:57→18:22)
[2022-12-04] MEDS: metFORMIN 500 MG TAB PO SCH (16:15)
[2022-12-04] MEDS: CEFAZOLIN 2 GM in Sodium Chloride 0.9% 100 ML IVPB SCH ×2 (16:15→22:57)
[2022-12-04] MEDS ORDERED: Vancomycin 1.5 GRAM/300 ML BAG 1.5 GM in Premix Bag 1 BAG IVPB SCH (18:00)
[2022-12-04] MEDS: Aspirin 81 mg Enteric Coated Tablet PO SCH ×2 (18:21→22:58)
[2022-12-04] MEDS: Amlodipine 5 MG TAB PO SCH (18:21)
[2022-12-04] MEDS: Lisinopril 20 MG TAB PO SCH (18:21)
[2022-12-04] MEDS: Budesonide 0.5 MG/2 ML NEB NEB SCH (19:28)
[2022-12-04] MEDS ORDERED: Montelukast Sodium 10 mg Tablet PO SCH (21:00)
[2022-12-04] MEDS ORDERED: Atorvastatin Calcium 40 MG TAB PO SCH (21:00)
[2022-12-05] MEDS: Sodium Chloride 0.9% 1,000 ML IV SCH (05:22)
[2022-12-05 06:06] LABS: Hematocrit 37.6 % (36.0-47.0); Hemoglobin 12.2 g/dL (12.0-16.0); Mean Corpuscular HGB CONC 32.4 g/dL (32.0-36.0); Mean Corpuscular Hemoglobin 30.8 pg (27.0-31.0); Mean Corpuscular Volume 94.9 fl (78.0-98.0); Mean Platelet Volume 9.8 fL (7.4-10.4); Platelet Count 248 10x3/uL (130-400); RBC Distribution Width 13.6 % (11.5-14.5); Red Blood Cell (RBC) Count 3.96 mill/uL (4.20-5.40); White Blood Cell (WBC) Count 16.1 10x3/uL (4.8-10.8)
[2022-12-05] MEDS: Ketorolac Tromethamine 30 MG/ML VIAL IVP SCH ×2 (06:14→12:09)
[2022-12-05] MEDS: Budesonide 0.5 MG/2 ML NEB NEB SCH (07:13)
[2022-12-05] MEDS ORDERED: Ferrous Gluconate 324 MG TAB PO SCH (08:00)
[2022-12-05] MEDS ORDERED: Multivitamin W/ Minerals 1 TAB PO SCH (09:00)
[2022-12-05] MEDS ORDERED: Senokot S 8.6-50 MG TAB PO SCH (09:00)
[2022-12-05] MEDS: HYDROcodone/Acetaminophen 10/325 mg Tablet PO PRN ×2 (09:00→14:12)
[2022-12-05] MEDS: Aspirin 81 mg Enteric Coated Tablet PO SCH (09:02)
[2022-12-05] MEDS: metFORMIN 500 MG TAB PO SCH (09:02)
[2022-12-05] MEDS: Lisinopril 20 MG TAB PO SCH (09:02)
[2022-12-05] MEDS: Amlodipine 5 MG TAB PO SCH (09:03)
[2022-12-05 11:48] VITALS: BP 112/67; TEMP 98.1
== END 2022-12-05 15:56 | disposition home or self-care (01) ==
LOC: SDC 05:30 → SJJU 08:06
PROVIDERS: ADMIT Orthopaedic Surgery; ATTEND Orthopaedic Surgery
PROC: 0SRD0JZ Replacement of Left Knee Joint with Synthetic Substitute, Open Approach (ICD-10-PCS; principal; 2022-12-04)
DX: M17.12 Unilateral primary osteoarthritis, left knee (principal); S83.242D Other tear of medial meniscus, current injury, left knee, subsequent encounter; I10 Essential (primary) hypertension; J44.9 Chronic obstructive pulmonary disease, unspecified; J45.909 Unspecified asthma, uncomplicated; E78.00 Pure hypercholesterolemia, unspecified; K21.9 Gastro-esophageal reflux disease without esophagitis; Z91.040 Latex allergy status; Z79.899 Other long term (current) drug therapy
CPT/HCPCS: 27447; 80048; 85025; 85027; 85610; 86850; 86900; 86901; 94640 ×2; 97110 ×2; 97116 ×2; 97530; A4306; C1776; J3010; J3370; 36415; J1100; J1885; J2001; J2250; J2405; J2704; J2795; J3490; J7611; J7620; J7626; S0020